=== PATIENT | male | born 1950 | race Two or more races ===

== ENCOUNTER 2018-02-02 19:44 | Emergency (ER) | payer SELFPAY ==
[~2018-02-02] VITALS: Ht 167.6 cm; Wt 84.8 kg
[2018-02-02 21:56] LABS: Urine Bacteria NONE SEEN /hpf (None Seen); Urine Blood Negative /uL (Negative); Urine Mucus FEW (None Seen); Urine Specific Gravity 1.029 (1.001-1.035); Urine WBC 3 /hpf (0 - 3)
[2018-02-02 22:07] LABS: Albumin 3.7 g/dL (3.4-5.0); BUN/Creatinine Ratio 12.1; Potassium 4.2 mmol/L (3.5-5.1)
[2018-02-02 22:09] LABS: Bilirubin, Total 0.6 mg/dL (0.2-1.0); Total Protein 7.8 g/dL (6.4-8.2)
[2018-02-02 22:10] LABS: Eosinophils # (auto) 0.1 uL; Hematocrit 53.6 % (41.0-53.0); Red Cell Distribution Width 14.2 % (11.8-14.3)
[2018-02-02 22:12] LABS: Basophils # (auto) 0.1 uL; Eosinophils % (auto) 1.7 % (0.0-7.0); Lymphocytes # (auto) 1.9 uL; Lymphocytes % (auto) 38.5 % (10.0-50.0); Mean Corpuscular Hemoglobin 30.4 pg (28.0-32.0); Mean Corpuscular Hgb Conc. 33.6 g/dL (32.0-36.0); Mean Corpuscular Volume 90.4 fL (80.0-100.0); Monocytes # (auto) 0.9 uL; Monocytes % (auto) 17.5 % (0.0-12.0); Neutrophils % (auto) 41.3 % (37.0-80.0); Nucleated Red Blood Cells % 0.4 %; Platelet Count (auto) 162 10^3/uL (140-450); Red Blood Cells 5.93 10^6/uL (4.5-5.90); White Blood Cell 4.9 10^3/uL (4.4-10.8)
[2018-02-02] MEDS ORDERED: ONDANSETRON HCL 4 MG/2 ML VIAL IV ONE (22:15)
[2018-02-02 22:23] VITALS: BP 154/80
[2018-02-02 22:40] LABS: INR 1.1 (0.9-1.15); Partial Thromboplastin Time 30.6 sec (22.64-33.71)
== END 2018-02-03 00:28 | disposition home or self-care (01) ==
LOC: ER 19:44
DX: R10.13 Epigastric pain (principal); E11.9 Type 2 diabetes mellitus without complications
CPT/HCPCS: 36415; 71045; 74176; 80053; 81001; 82150; 83690; 85025; 85610; 85730; 93005; 94761

== ENCOUNTER 2018-02-11 22:36 | Emergency (ER) | payer MEDICARE ==
[~2018-02-11] VITALS: Ht 172.7 cm; Wt 84.4 kg
[2018-02-12] MEDS ORDERED: MAGNESIUM CITRATE SOLUTION 300 ML BTL PO ONE (04:30)
[2018-02-12] MEDS ORDERED: LACTULOSE 20Gm/30ML SOLN PO ONE (04:45)
[2018-02-12 05:09] VITALS: BP 132/65
== END 2018-02-12 06:22 | disposition home or self-care (01) ==
LOC: ER 22:45
DX: K59.00 Constipation, unspecified (principal); E11.9 Type 2 diabetes mellitus without complications
CPT/HCPCS: 74176